=== PATIENT | female | born 2005 | race African-American/Black ===

== ENCOUNTER 2025-01-23 09:26 | Emergency (ER) | payer OTHER ==
[2025-01-23] MEDS ORDERED: Ketorolac Tromethamine 30 MG (1 mL) VIAL ONE (09:53)
[2025-01-23] MEDS ORDERED: predniSONE 20 MG TAB ONE (09:54)
== END 2025-01-23 10:28 | disposition home or self-care (01) ==
LOC: CSHERS 09:26
DX: J01.90 Acute sinusitis, unspecified (principal); B96.89 Other specified bacterial agents as the cause of diseases classified elsewhere; G43.909 Migraine, unspecified, not intractable, without status migrainosus
CPT/HCPCS: 96372; 99283; J1885; J7512